=== PATIENT | male | born 1965 | race Caucasian/White ===

== ENCOUNTER 2016-05-20 12:51 | Outpatient (CLI) | payer MEDICAID ==
[~2016-05-20] VITALS: Ht 190.5 cm; Wt 111.4 kg
--- NOTE | ~2016-05-20 | HEMODYNAMI ---
PATIENT:ALICJA HERNANDEZ MEDICAL RECORD: [id number] : 69 [id number] ADMISSION DATE: 05/20/16 Generatedon:05/20/201618:30 Patient name: ALICJA HERNANDEZ Patient #: [id number] SSN: [id number] : 1965 Date of study: 05/20/2016 Page: Of Hemodynamic Procedure Report Patient Data Patient Demographics Procedure consent was obtained First Name: ALICJA Gender: Male Last Name: DAVID : 1965 Middle Initial: CARLY Age: 51 year(s) Patient #: [id number] Race: SSN: [id number] Additional ID: [id number] Contact details [address]: [address] [place] [address] State: [place] City: [place] Zip code: [address] Admission Admission Data Admission Date: 05/20/2016 Admission Time: 12:51 Arrival Date: 05/20/2016 Arrival Time: 12:51 Admit Source: Emergency Insurance Payor: Private department health insurance Room #: D.[id number] Height (in.): 74 BSA: 2.37 (m2) Height (cm.): 187.96 BMI: 31.46 (kg/m2) Weight (lbs.): 245 Weight (kg.): 111.13 Lab Results Lab Result Date: 05/20/2016 Lab Result Time: 0:00 Biochemistry Name Units Result Min Max BUN mg/dl 14 --(--*-)-- 7 18 Creatinine mg/dl 1.2 --(---*)-- 0.6 1.3 CBC Name Units Result Min Max Hemoglobin g/dl 15.7 --(--*-)-- 13.5 17.5 Procedure Procedure Types Cath Procedure Diagnostic Procedure LHC LH w/Coronaries PCI Procedure Coronary Stent Initial Procedure Description Procedure Date Procedure Date: 05/20/2016 Procedure Start Time: 18:13 Procedure End Time: 18:29 Procedure Staff Name Function Heber Hernandes MD Performing Physician Frida Gallardo RT Scrub Neeta Adan RN Nurse Shelia Serrato RT Monitor Leo Duenas RT Monitor Indication Angina Procedure Data Cath Procedure Fluoroscopy Diagnostic fluoroscopy Total fluoroscopy Time: 1.9 time: 1.9 min min Diagnostic fluoroscopy Total fluoroscopy dose: 358 dose: 358 mGy mGy Contrast Material Contrast Material Type Amount (ml) Isovue 300 62 Entry Location Entry Primary Successful Side Size Upsize Upsize Entry Closure Succes sful Closure Location (Fr) 1 (Fr) 2 (Fr) Remarks Device Remarks Femoral Right 5 Fr 6 Fr Vascade artery Short Closure System Diagnostic catheters Device Type Used For End Catheter Placement Cordis 5Fr Pigtail LV Angiography Catheter (MP) Cordis 5Fr JL 4.0 Left Coronary Catheter (MP) Angiography Cordis 5Fr 3DRC Catheter Right Coronary (MP) Angiography Procedure Medications Medication Administration Route Dosage Oxygen NC 2 l/min Heparin Flush Bag added to field 2 bags (1000units/500ml NS) Lidocaine 2% added to field 20 Fentanyl I.V. 100 mcg Versed I.V. 2 mg Fentanyl I.V. 100 mcg Versed I.V. 2 mg Heparin Bolus I.V. 4000 units Hemodynamics Rest BSA: 2.37 (m2) HGB: 15.7 (g/dl) O2 Consumption: Estimated: 276.67 (ml/min) O2 Co nsumption indexed: Estimated:116.74 (ml/min/m) Heart Rate: 62 (bpm) Pressure Samples Time Site Value (mmHg) Purpose Heart Use Rate(bpm) 18:16 LV 74/11,15 Snapshot 69 Snapshots Pre Cath Intra NCS Post Cath Vital Signs Time Heart Resp SPO2 NIBP (mmHg) Rhythm Pain Sedation Rate (ipm) (%) Status Level (bpm) 17:54:43 60 16 99 128/79(109) NSR 0 (11) 10(A) , No pain 17:58:55 63 16 98 139/73(94) NSR 0 (11) 10(A) , No pain 18:03:13 67 19 96 118/73(88) NSR 0 (11) 10(A) , No pain 18:07:25 63 18 92 116/74(89) NSR 0 (11) 10(A) , No pain 18:11:34 61 17 91 114/77(89) NSR 0 (11) 10(A) , No pain 18:15:46 59 18 96 129/76(125) NSR 0 (11) 9(A) , No pain 18:19:56 67 17 92 129/81(97) NSR 0 (11) 9(A) , No pain 18:24:10 68 18 94 135/82(97) NSR 0 (11) 9(A) , No pain 18:28:22 66 13 95 128/77(91) NSR 0 (11) 9(A) , No pain Medications Time Medication Route Dose Verified Delivered Reason Notes Effectiveness by by 17:57:07 Oxygen NC 2 Heber Neeta Per physician l/min Greta Adan RN 17:57:15 Heparin Flush added 2 Heber Heber used for Bag to bags Greta Hernandes MD procedure (1000units/500ml field NS) 17:57:22 Lidocaine 2% added 20ml Heber Heber used for to vial Greta Hernandes MD procedure field 18:14:06 Fentanyl I.V. 100 Heber Heber for sedation mcg Greta Hernandes MD 18:14:14 Versed I.V. 2 mg Heber Cardonarey for sedation Greta Hernandes MD 18:16:35 Fentanyl I.V. 100 Heberclare Cardonarey for sedation mcg Greta Hernandes MD 18:16:52 Versed I.V. 2 mg Heberclare Cardonarey for sedation Greta Hernandes MD 18:20:41 Heparin Bolus I.V. 4000 Heber Heber for units Greta Hernandes MD anticoagulation Procedure Log Time Note 17:35:29 Frida BRANDON(R) sent for patient. Start room use. 17:46:45 Informed consent obtained and on chart 17:46:52 Admit Source: Emergency department 17:46:57 Arrival Date: 05/20/2016 12:51:00 PM 17:47:04 Insurance Payor : Private health insurance 17:47:11 Diagnostic Cath Status : Elective 17:47:26 Indication : Angina 17:47:37 Time tracking: Regular hours 17:47:41 Plan of Care:Hemodynamics will remain stable., Cardiac rhythm will remain stable., Comfort level will be maintained., Respiratory function will remain adequate., Patient/ family verbilizes understanding of procedure., Procedure tolerated without complication., Recovers from procedure without complications.. 17:47:49 Patient received from Med II to CCL 1 Alert and oriented. Tansferred to table in Supine position. 17:47:50 Warm blankets applied, and nolvia hugger turned on for patient comfort. 17:47:50 Correct patient and procedure confirmed by team. 17:47:51 ECG and BP/O2 sat monitors applied to patient. 17:53:39 Vital chart was started 17:55:08 Baseline sample Acquired. 17:55:19 Rhythm: unchanged. 17:55:25 Full Disclosure recording started 17:55:35 H&P Date Dictated: 05/20/2016 ER History on chart., New H&P dictated by physician.. 17:55:36 Pre-procedure instructions explained to patient. 17:55:37 Pre-op teaching completed and patient verbalized understanding. 17:55:38 Family in waiting room. 17:55:39 Patient NPO since Midnight. 17:55:43 Is the patient allergic to Iodine/contrast media? No. 17:55:44 Was the patient premedicated? No 17:56:32 Is patient on blood thinner?Yes 17:56:36 ACC The patient was administered the following blood thiners within the last 24 hours: ACCPlavix 17:56:38 Patient diabetic? No. 17:56:41 Previous problem with sedation/anesthesia? No ? 17:56:42 Snore? Yes 17:56:43 Sleep apnea? Yes 17:56:44 Deviated septum? No 17:56:45 Opens mouth fully? Yes 17:56:46 Sticks out tongue? Yes 17:56:51 Airway obstruction? Yes asthma 17:56:57 Dentures? No ? 17:57:00 Pre procedure: right dorsailis pedis pulse 1+ Palpable, but thready & weak; easily obliterated 17:57:05 Patient pain scale 0/10 ?. 17:57:07 Oxygen 2 l/min NC was given by Neeta Adan RN; Per physician; 17:57:15 Heparin Flush Bag (1000units/500ml NS) 2 bags added to field was given by Heber Hernandes MD; used for procedure; 17:57:15 IV patent on arrival in left forearm with 0.9% NaCl at [facility]. 17:57:22 Lidocaine 2% 20ml vial added to field was given by Heber Hernandes MD; used for procedure; 17:57:33 Lab Result : BUN 14 mg/dl 17:57:33 Lab Result : Creatinine 1.2 mg/dl 17:57:33 Lab Result : Hemoglobin 15.7 g/dl 17:57:37 Lab results completed and on chart. 17:57:42 Right groin area was prepped with chlora-prep and draped in sterile fashion 17:57:43 Alarms reviewed by R. N. 17:57:43 Sharps counted by scrub and verified by R.N. 17:58:20 Patient Weight : 111.13 lbs 17:58:24 Patient Height : 187.96 inches 17:59:49 Use device set Femoral Dx 17:59:52 IV Extension Set opened to sterile field. 17:59:53 Tegaderm 4 x 4 opened to sterile field. 17:59:54 Cordis Infinity 5Fr Multipack catheter opened to sterile field. 17:59:59 St Mathew 260cm J .035 wire opened to sterile field. 18:00:00 Terumo 5Fr [place] Sheath opened to sterile field. 18:00:01 Cardinal Cath Pack opened to sterile field. 18:00:03 Bag Decanter opened to sterile field. 18:00:03 Acist Syringe opened to sterile field. 18:00:05 Acist Hand Control opened to sterile field. 18:00:06 Acist Manifold opened to sterile field. 18:06:13 Zero performed for pressure channel P1 18:12:37 Physician arrived 18:12:38 --------ALL STOP TIME OUT------ 18:12:39 Final Timeout: patient, procedure, and site verified with staff and physician. All members of the team are in agreement. 18:12:42 Right groin site verified by team. 18:12:45 Physical assessment completed. ASA score P 2 - A patient with mild systemic disease as per Heber Hernandes MD. 18:12:51 Sedation plan: IV Moderate Sedation Versed, Fentanyl 18:13:08 Procedure started. 18:13:18 Local anesthetic to right femoral artery with Lidocaine 2% by Heber Hernandes MD.INITIAL ACCESS ONLY 18:13:30 A 5 Fr sheath was inserted into the Right Femoral artery 18:14:06 Fentanyl 100 mcg I.V. was given by Heber Hernandes MD; for sedation; 18:14:14 Versed 2 mg I.V. was given by Heber Hernandes MD; for sedation; 18:16:35 Fentanyl 100 mcg I.V. was given by Heber Hernandes MD; for sedation; 18:16:38 A Cordis 5Fr Pigtail Catheter (MP) was advanced over the wire and used for LV Angiography. 18:16:52 Versed 2 mg I.V. was given by Heber Hernandes MD; for sedation; 18:17:00 Catheter removed. 18:17:07 A Cordis 5Fr JL 4.0 Catheter (MP) was advanced over the wire and used for Left Coronary Angiography. 18:17:35 LCA angiography performed. 18:17:57 Vaughn Whisper J 300cm 0.014 guide wire opened to sterile field. 18:17:58 Scope 5 BasixCompak Inflation Kit opened to sterile field. 18:17:59 Terumo 6Fr [place] Sheath opened to sterile field. 18:18:05 Sheath upsized to a 6 Fr Short. 18:18:14 Catheter removed. 18:18:20 A Cordis 5Fr 3DRC Catheter (MP) was advanced over the wire and used for Right Coronary Angiography. 18:18:24 RCA angiography performed. 18:19:14 Catheter removed. 18:19:53 Cordis 6FR XBLAD 3.5 guide catheter opened to sterile field. 18:20:08 6 Fr xblad 3.5 guide catheter was inserted over the wire 18:20:12 whisper wire advanced. 18:20:41 Heparin Bolus 4000 units I.V. was given by Heber Hernandes MD; for anticoagulation; 18:22:08 Inflation Number: 1 A Medtronic Integrity 3.5 X 18 stent was prepped and advanced across the Mid LAD. The stent was deployed at 13 BUSTER for 0:04 (min:sec). 18:22:26 Tegaderm 4 x 4 opened to sterile field. 18:22:52 Vascade 6/7 Fr Closure Device opened to sterile field. 18:23:06 Sheath removed intact; hemostasis achieved with Vascade Closure System to the Right Femoral artery. 18:23:08 Procedure ended.(Physican Out) 18:23:19 Fluoroscopy time 01.90 minutes. 18:23:26 Fluoroscopy dose: 358 mGy 18:23:26 Flurop Dose total: 358 18:23:34 Contrast amount:Isovue 300 62ml. 18:23:36 Sharps counted by scrub and verified by R.N. 18:23:38 Insertion/operative site no bleeding no hematoma. 18:23:41 Post-op/insertion site Right Femoral artery dressed using a 4 x 4 and Tegaderm. 18:23:44 Post right femoral artery:stable 18:23:47 Post Procedure Pulses reassessed and unchanged 18:23:50 Post-procedure physical assessment completed. ASA score P 2 - A patient with mild systemic disease as per Heber Hernandes MD. 18:23:51 Post procedure instruction explained to patient.Patient verbalizes understanding. 18:23:54 Procedure and supply charges have been captured, reviewed, submitted and are correct. 18:24:18 Procedure type changed to Cath procedure, Diagnostic procedure, LHC, LHC w/Coronaries, PCI procedure, Coronary Stent Initial 18:28:31 Post procedure rhythm: sinus rhythm 18::34 Patient needs reinforcement of post procedure teaching. 18:28:37 Vital chart was stopped 18:28:39 See physician's report for complete and final results. 18::41 Report given to PCU. 18:28:50 Patient transfered to PCU with Bed. 18:29:13 Procedure ended. 18:29:13 Full Disclosure recording stopped 18:29:29 ACC-PCI Only Patient was given prescriptions, or instructed by Heber Hernandes MD to start/continue the following medications upon discharge: Aspirin, Plavix 18:29:31 End room use (Document Last) Intervention Summary Intervention Notes Time ActionType Lesion and Equipment Action# Pressure Duration Attributes Used 18:22:08 Place stent Mid LAD Medtronic 1 13 00:04 Integrity 3.5 X 18 stent Device Usage Item Name Manufacture Quantity Catalog Hospital Part Current Minima l Lot# / Number Charge Number Stock Stock Serial# Code IV [facility] 1 06120-44 359832 68172 064732 5 Extension Set Tegaderm 4 3M 2 1626W 457061 064597 102923 5 x 4 Cordis Cardinal 1 [id number] 108853 68735 626484 30 [facility] 5Fr Multipack catheter [facility] Mathew 1 854475 400518 387983 339570 30 260cm J .035 wire Terumo 5Fr Terumo 1 [id number] 676591 898287 438400 40 [place] Sheath Cardinal Cardinal [address] 288440 44061 811650 5 Cath Pack Health Bag Microtek 1 2002S 728938 02471 458964 5 Decanter Medical Inc. Acist Acist 1 65545 434074 674984 162701 20 Syringe Medical Systems Inc Acist Hand Acist 1 83416 853612 777906 802202 5 Control Medical Systems Inc Acist Acist 1 30675 060799 130130 645200 5 Manifold Medical Systems Inc Cordis 5Fr Cardinal 1 921047 5 Pigtail Health Catheter (MP) Cordis 5Fr Cardinal 1 872293 5 JL 4.0 Health Catheter (MP) Vaughn Vaughn 1 [id number] 583625 411785 610994 5 Whisper J Vascular 300cm 0.014 guide wire [facility] 1 [id number] 908910 624148 274710 15 BasixDial a Dealer Medical Inflation Kit Terumo 6Fr Terumo 1 [id number] 558375 988824 062516 40 [place] Sheath Cordis 5Fr Cardinal 1 997659 5 3DRC Health Catheter (MP) Cordis 6FR Cardinal 1 [id number] 769727 777683 268262 10 XBLAD 3.5 Health guide catheter Medtronic Medtronic 1 [id number] 755795 239310 2 [id number] Integrity 3.5 X 18 stent Vascade 6/7 Cardiva 1 [id number] 146455 674593 474361 5 Fr Closure Medical, Device Inc. Signature Audit [place] Stage Time Signature Unsigned Intra-Procedure 05/20/2016 Leo Duenas 6:30:20 PM RT(R) (CV) Signatures Monitor : Shelia Serrato RT Signature : Date : Time : Monitor : Leo Duenas RT Signature : Date : Time : [place] [address] [place] [address]
[2016-05-20 10:25] LABS: BASOPHILS 0.9 % (0.0-2.0); HEMOGLOBIN 15.7 g/dL (13.5-17.5); MCH 29.2 pg (26.0-34.0); MCHC 34.1 g/dL (31.0-37.0); MCV 85.7 fL (80.0-100.0); MEAN PLATELET VOLUME 10.5 fL (7.4-10.4); MONOCYTES 10.2 % (2-11); NEUTROPHILS 54.9 % (40-80); PLATELET COUNT 181 10x3/uL (130-400); RBC 5.37 10x6/uL (4.20-6.10); RDW 13.3 % (11.5-14.5); WBC 4.3 10x3/uL (4.8-10.8)
[2016-05-20 10:39] LABS: ALKALINE PHOSPHATASE 61 U/L (46-116); ALT (SGPT) 29 U/L (10-68); CALC OSMOLALITY 276 mosm/kg (275-300); CALCIUM 8.5 mg/dL (8.5-10.1); CARBON DIOXIDE 30.3 mmol/L (21.0-32.0); CHLORIDE - SERUM 102 mmol/L (98-107); CREATININE - SERUM 1.2 mg/dL (0.6-1.3); GLUCOSE 97 mg/dL (74-106); POTASSIUM - SERUM 4.1 mmol/L (3.5-5.1); PROTEIN - SERUM 7.2 g/dL (6.4-8.2); SODIUM 138 mmol/L (136-145); UREA NITROGEN 14 mg/dL (7-18); eGFR NON AFRICAN AMERICAN 68 mL/min (90-120)
[2016-05-20 10:58] LABS: CKMB 1.2 U/L (0.0-3.6); CREATINE KINASE 181 UL (21-232); TROPONIN-I < 0.017 ng/mL (0.000-0.060)
--- NOTE | 2016-05-20 14:35 | NUR ---
RECEIVED PT VIA W/C FROM ER IN STABLE CONDITION DENIES ANY PAIN OR DISCOMFORT AT THIS TIME NAD NOTED
[2016-05-20 14:55] VITALS: BP 128/67; Ht 190.5 cm; Wt 111.4 kg
[2016-05-20] MEDS ORDERED: ULTRAM50 MG PO (16:36)
[2016-05-20] MEDS ORDERED: PROAIR HFA8.5 GM INH (16:37)
[2016-05-20] MEDS ORDERED: CELEXA10 MG PO (16:37)
[2016-05-20] MEDS ORDERED: OMEPRAZOLE40 MG PO (16:37)
[2016-05-20] MEDS ORDERED: ROBAXIN500 MG PO (16:38)
[2016-05-20 18:44] VITALS: BP 119/65
[2016-05-20 18:59] VITALS: BP 121/63
[2016-05-20 19:00] VITALS: BP 134/91
[2016-05-20 19:14] VITALS: BP 113/67
--- NOTE | 2016-05-20 19:35 | NUR ---
ASSESSMENT COMPLETE, A&O. PT RESITNG SUPINE, RESPERATIONS EVEN ON ROOM AIR. IV TO RIGHT FOREARM SL, SITE CLEAN AND DRY. DRSG TO RIGHT GROIN C/D/I. NO SWELLING, BLEEDING OR HEMATOMA NOTED. SITE SOFT TO THE TOUCH. PT DENIES PAIN. RIGHT LEG WARM, PEDAL PULSES PALPABLE. AT BED SIDE, BED LOW, CL IN REACH.
--- NOTE | 2016-05-20 20:18 | NUR ---
SANDWHICH TRAY AND LEMON [place] GIVEN AT PT REQUEST. NO OTHER NEEDS VOICED AT THIS TIME.
[2016-05-21] VITALS: BP 151/84
--- NOTE | 2016-05-21 01:20 | NUR ---
SLEEPING, RESTIRATIONS UNLABORED, NO S&S OF ACUTE DISTRESS NOTED. TELEMETRY SHOWING 59 BPM IN NSR. BED LOW AND LOCKED, CALL LIGHT IN REACH. WILL CONTINUE TO MONITOR.
--- NOTE | 2016-05-21 03:05 | NUR ---
RESTING WITH EYES CLOSED, RESPERATIONS EVEN, NO S/S DISTRESS NOTED.
[2016-05-21 04:00] VITALS: BP 143/93
--- NOTE | 2016-05-21 07:19 | NUR ---
0710-DENIES NEEDS AT PARESENT TIME. HAD HEART CATH YESTERDAY. RIGHT GROIN DRESSING IS DRY AND INTACT, SITE IS SOFT. PPP AND STRONG. ON HEART MONITOR SHOWING SR, HR 60. ON ROOM AIR. SALINE LOCK SEEN TO RIGHT FOREARM, FLUSHES WELL. PATIENT COMPLAINS OF RIGHT HIP PAIN "AT TIMES, NOT ALAWAYS". ASK THAT HE TELL THE DOCTOR OF THIS BEFORE DISCHARGE. STATES HE HAS A HISTORY OF RIGHT UPPER ARM BLOOD CLOT IN THE PAST. WILL CONTINUE TO MONITOR.
[2016-05-21] MEDS ORDERED: PLAVIX75 MG PO (08:16)
[2016-05-21] MEDS ORDERED: PRAVACHOL20 MG PO (08:17)
[2016-05-21] MEDS ORDERED: ASPIRIN81 MG PO (08:18)
[2016-05-21 08:56] VITALS: BP 148/109
--- NOTE | 2016-05-21 10:56 | NUR ---
VERBAL AND WRITTEN DISCHARGE INSTRUCITONS GIVEN TO PATIENT AND . WANTED B/P CHECKED, 125/86 TO LEFT ARM. SALINE LOCK REMOVED WITH CATH TIP INTACT. DISCHARGED HOME VIA WHEELCHAIR.
--- NOTE | 2016-05-27 14:16 | DS ---
PATIENT:ALICJA HERNANDEZ :69 MEDICAL RECORD: [id number] DISCHARGE SUMMARY ADMISSION DATE: 05/20/16 DISCHARGE DATE: 05/21/16 DISCHARGE DIAGNOSES: 1. Unstable angina. 2. Coronary artery disease. 3. Percutaneous transluminal coronary angioplasty and stent left anterior descending this admission. HOSPITAL COURSE: This is a gentleman who presents with anginal symptomatology, found to have single vessel disease to the LAD, underwent successful PTCA stent of the LAD. He had an uneventful postop course with no further angina. Discharged home with the addition of aspirin and Plavix to his medical regimen. We will follow up with [facility] in 1 month. TRANSINT:[id number] Voice Confirmation ID: [id number] DOCUMENT ID: [id number] DHARMESH DAMICO MD at 1416 CC: [id number] DICTATION DATE: 05/20/16 182 AUTOMATIC FANCY MACHINE OPERATOR: 05/21/16 0002 DEP CLI 05/21/16 [place] [id number] [place] [address]
--- NOTE | 2016-05-27 14:16 | HP ---
PATIENT: ALICJA HERNANDEZ MEDICAL RECORD: [id number] ACCOUNT: [id number] LOCATION:[facility] : 69 ADMISSION DATE: 05/20/16 HISTORY AND PHYSICAL EXAMINATION ADMISSION DIAGNOSES: 1. Angina, unstable. 2. Family history of coronary artery disease. 3. Smoking history. HISTORY OF PRESENT ILLNESS: Mr. Hernandez presents with 1 week of increasing chest pain and chest discomfort compatible with angina, dull aching pressure sensation across the anterior chest, has been worse with exertion, less and less exertion has brought on the chest pain over this week. He had a severe episode of diaphoresis with the chest pain today. His EKG is normal. Troponin is normal, but his symptoms continued to progress. PHYSICAL EXAMINATION: GENERAL APPEARANCE: Well-nourished, well-developed, appears stated age. Level of distress, comfortable. PSYCHIATRIC: Mental status, alert, normal affect. Orientation, oriented to time, place and person. EYES: Lids and conjunctiva, noninjected. No discharge, no pallor. ENT: Lips, teeth, gums, normal dentition. Oropharynx, no cyanosis, no pallor. NECK: Carotid arteries, bilateral normal upstroke, no bruits, no thrills. JUGULAR VEINS: No jugular venous pressure or distention. CERVICAL LYMPH NODES: Nontender, nonenlarged. THYROID: Not enlarged. Nontender. No nodules. LUNGS: Respiratory effort, unlabored. CHEST: Normal curvature. No thoracic deformity. No chest wall tenderness. Percussion, resonant. Auscultation, clear. No wheezes, no rales, no rhonchi. CARDIOVASCULAR: Precordial exam, nondisplaced. No heaves or pericardial thrills. Rate and rhythm, regular. Heart sounds, normal S1, normal S2. No S3, no gallop, no rub. Systolic murmur, not heard. Diastolic murmur, not heard. EXTREMITIES: No cyanosis, no edema. Peripheral pulses, full and equal in all extremities, except as noted. No bruits appreciated. ABDOMEN: Soft, nondistended. Normal aorta. No bruit. Nontender. No masses. Liver, nontender, no hepatomegaly. Spleen, nontender, no splenomegaly. MUSCULOSKELETAL: No joint tenderness. No joint swelling. No erythema. NEUROLOGICAL: Normal gait, normal strength, normal tone. SKIN: Warm and dry. REVIEW OF SYSTEMS: The patient reports easy bruising but reports no swollen glands. The patient reports no fever, no night sweats, no significant weight gain, no significant weight loss. No significant exercise tolerance. The patient reports no dry eyes, no irritation, no vision change. Patient reports no difficulty hearing and no ear pain. Patient reports no frequent nose bleeds or nose and sinus problems. Patient reports on arm pain on exertion. No shortness of breath while lying down. No history of heart murmur. Patient reports no cough, no wheezing or coughing up blood. Patient reports no abdominal pain, no vomiting. Normal appetite. No diarrhea and not vomiting blood. No nausea and no constipation. Patient reports no incontinence. No difficulty urinating. No hematuria. No increased frequency. Patient reports no muscle aches. No weakness, no arthralgias, no back pain. No swelling of the extremities. Patient reports no abnormal mole, no jaundice, no rashes. Reports HISTORY AND PHYSICAL [id number] ALICJA HERNANDEZ no loss of consciousness. No weakness and no numbness. No seizures, dizziness, or headaches. The patient reports no depression, no sleep disturbance, feeling safe in a relationship and no alcohol abuse. Patient reports on fatigue. Reports no runny nose or sinus pressure. No itching, no hives, and no frequent sneezing. OVERALL IMPRESSION: Unstable angina in a progressive fashion. We will proceed with coronary angiography. Further care depends upon findings of the angiography. TRANSINT:[id number] Voice Confirmation ID: [id number] DOCUMENT ID: [id number] DHARMESH DAMICO MD at 1416 CC: [id number] DICTATION DATE: 05/20/16 1256 AIRFRAME TECHNICAL OFFICER: 05/20/16 1307 DEP CLI 05/21/16 [place] [id number]
--- NOTE | 2016-05-27 14:16 | OP ---
PATIENT NAME: ALICJA HERNANDEZ MEDICAL RECORD: [id number] :69 LOCATION:[facility] ADMISSION DATE: SURGEON: DHARMESH DAMICO MD DATE OF OPERATION: 05/20/2016 PROCEDURES: 1. PTCA stent LAD. 2. Left heart catheterization. 3. Selective coronary angiography. 4. Left ventriculogram. INDICATION: Unstable angina. PROCEDURE IN DETAIL: After detailed explanation of risks, benefits as well as alternative therapies, the patient elected to proceed with angiogram and angioplasty. The right femoral area was prepped and draped in normal sterile fashion. The right femoral artery was cannulated via modified Seldinger technique with placement of a 6-Lithuanian sheath. All catheters exchanged through this sheath. FINDINGS: The left ventriculogram was performed in the standard 30-degree LINCOLN view reveals good cardiac wall motion throughout all segments. Overall ejection fraction estimated 60%. SELECTIVE CORONARY ANGIOGRAPHY: 1. Left main is with no significant angiographic disease. 2. Left anterior descending has 80% to 90% stenosis in the midvessel, appears to be an ulcerated unstable plaque. 3. Left circumflex shows moderate irregularities, but no flow-limiting stenosis. 4. Right coronary has moderate irregularities, but no flow-limiting stenosis. PTCA STENT OF THE LAD: The stent used is a 3.5 x 18 mm Integrity. Result was 0% residual stenosis. OVERALL IMPRESSION: Successful percutaneous transluminal coronary angioplasty stent of the left anterior descending going from 80% to 90% initial stenosis to 0% residual. TRANSINT:[id number] Voice Confirmation ID: [id number] DOCUMENT ID: [id number] DHARMESH DAMICO MD at 1416 CC: [id number] DICTATION DATE: 05/20/16 1828 DIVERSIFIED CROPS I FARMWORKER: 05/20/16 2013 [facility] CLI 05/21/16 [place] [id number]
== END 2016-05-21 10:58 | disposition home or self-care (01) ==
LOC: OBSVTIME → D.OPS 12:51 → D.ER 12:51 → D.M2 12:51 → D.OPS 05-21 10:58
PROVIDERS: Emergency Medicine
DX: I25.110 Atherosclerotic heart disease of native coronary artery with unstable angina pectoris (principal)

== ENCOUNTER 2016-06-23 11:26 | Emergency (ER) | payer MEDICAID ==
[2016-05-20 14:55] VITALS: BMI 30.6
[~2016-06-23 11:26] MED LIST: ASPIRIN81 MG PO; CELEXA10 MG PO; OMEPRAZOLE40 MG PO; PLAVIX75 MG PO; PRAVACHOL20 MG PO; PROAIR HFA8.5 GM INH; ROBAXIN500 MG PO; ULTRAM50 MG PO
[2016-06-23 12:39] LABS: BASOPHILS 1.2 % (0.0-2.0); EOSINOPHILS 5.3 % (0-7); IMMATURE GRANULOCYTES 0.2 % (0-5); LYMPHOCYTES 28.8 % (15-50); MCH 28.9 pg (26.0-34.0); MCHC 34.1 g/dL (31.0-37.0); MCV 84.8 fL (80.0-100.0); MEAN PLATELET VOLUME 10.6 fL (7.4-10.4); NEUTROPHILS 53.5 % (40-80); PLATELET COUNT 185 10x3/uL (130-400); RBC 5.19 10x6/uL (4.20-6.10); RDW 13.1 % (11.5-14.5); WBC 4.9 10x3/uL (4.8-10.8)
[2016-06-23 13:00] LABS: ALBUMIN 3.8 g/dL (3.4-5.0); ALKALINE PHOSPHATASE 68 U/L (46-116); ALT (SGPT) 31 U/L (10-68); BILIRUBIN - TOTAL 0.39 mg/dL (0.2-1.3); CALC OSMOLALITY 279 mosm/kg (275-300); CALCIUM 8.7 mg/dL (8.5-10.1); CARBON DIOXIDE 28.8 mmol/L (21.0-32.0); CHLORIDE - SERUM 103 mmol/L (98-107); CREATININE - SERUM 1.2 mg/dL (0.6-1.3); GLUCOSE 107 mg/dL (74-106); POTASSIUM - SERUM 3.8 mmol/L (3.5-5.1); PROTEIN - SERUM 7.1 g/dL (6.4-8.2); SODIUM 139 mmol/L (136-145); UREA NITROGEN 18 mg/dL (7-18); eGFR NON AFRICAN AMERICAN 68 mL/min (90-120)
[2016-06-23 13:10] LABS: CKMB 1.8 U/L (0.0-3.6); CREATINE KINASE 236 UL (21-232)
[2016-06-23 13:11] LABS: TROPONIN-I < 0.017 ng/mL (0.000-0.060)
== END 2016-06-23 16:46 | disposition home or self-care (01) ==
LOC: D.ER 11:26
PROVIDERS: Emergency Medicine
DX: R07.89 Other chest pain (principal)

== ENCOUNTER → 2017-05-05 10:54 | Outpatient (CLI) | payer MEDICAID ==
[2016-05-20 14:55] VITALS: BMI 30.6
[~2017-05-05 10:54] MED LIST changes: +IBUPROFEN800 MG PO
== END | disposition home or self-care (01) ==
LOC: D.US 10:54
DX: I70.219 Atherosclerosis of native arteries of extremities with intermittent claudication, unspecified extremity (principal)

== ENCOUNTER 2017-05-13 19:28 | Emergency (ER) | payer MEDICAID ==
[2016-05-20 14:55] VITALS: BMI 30.6
[~2017-05-13 19:28] MED LIST changes: -IBUPROFEN800 MG PO
[2017-05-13 19:59] LABS: BASOPHILS 0.4 % (0-2); EOSINOPHILS 5.4 % (0-7); HEMATOCRIT 43.9 % (42.0-54.0); HEMOGLOBIN 14.7 g/dL (13.5-17.5); MCH 29.2 pg (26.0-34.0); MCHC 33.5 g/dL (31.0-37.0); MCV 87.1 fL (80.0-100.0); MEAN PLATELET VOLUME 10.8 fL (7.4-10.4); MONOCYTES 9.2 % (2-11); PLATELET COUNT 206 10x3/uL (130-400); RBC 5.04 10x6/uL (4.20-6.10); RDW 13.2 % (11.5-14.5); WBC 6.9 10x3/uL (4.8-10.8)
[2017-05-13 20:07] LABS: INR 0.92 (0.85-1.17)
[2017-05-13 20:09] LABS: D-DIMER-QUANTITATIVE 0.28 ug/mLFEU (0.20-0.54)
[2017-05-13 20:14] LABS: ALBUMIN 3.6 g/dL (3.4-5.0); ALKALINE PHOSPHATASE 89 U/L (46-116); ALT (SGPT) 16 U/L (10-68); BILIRUBIN - TOTAL 0.13 mg/dL (0.2-1.3); CALC OSMOLALITY 279 mosm/kg (275-300); CALCIUM 8.5 mg/dL (8.5-10.1); CARBON DIOXIDE 28.8 mmol/L (21.0-32.0); CHLORIDE - SERUM 104 mmol/L (98-107); CREATININE - SERUM 1.1 mg/dL (0.6-1.3); GLUCOSE 121 mg/dL (74-106); POTASSIUM - SERUM 3.9 mmol/L (3.5-5.1); PROTEIN - SERUM 7.2 g/dL (6.4-8.2); SODIUM 139 mmol/L (136-145); UREA NITROGEN 16 mg/dL (7-18); eGFR NON AFRICAN AMERICAN 75 mL/min (90-120)
[2017-05-13 20:29] LABS: CHOL - HDL RATIO 3.3 ratio (2.3-4.9); CHOLESTEROL, TOTAL 135 mg/dL (0-200); CKMB 0.5 U/L (0.0-3.6); CREATINE KINASE 114 UL (21-232); HDL CHOLESTEROL 41 mg/dL (32-96); LDL CHOLESTEROL 58 mg/dL (0-100); LDL-HDL RATIO 1.4 ratio (1.5-3.5); MAGNESIUM - SERUM 2.2 mg/dL (1.8-2.4); TRIGLYCERIDE 180 mg/dL (30-200)
[2017-05-13 20:31] LABS: TROPONIN-I < 0.017 ng/mL (0.000-0.060)
== END 2017-05-14 00:36 | disposition home or self-care (01) ==
LOC: D.ER 19:28
PROVIDERS: Family Medicine
DX: R07.89 Other chest pain (principal)

== ENCOUNTER 2017-05-16 09:01 | Outpatient (CLI) | payer MEDICAID ==
[~2017-05-16] VITALS: Ht 190.5 cm; Wt 110.0 kg
--- NOTE | ~2017-05-16 | OP ---
PATIENT NAME: ALICJA HERNANDEZ MEDICAL RECORD: [id number] :69 LOCATION:[facility] ADMISSION DATE: SURGEON: DHARMESH DAMICO MD DATE OF OPERATION: 05/16/2017 PROCEDURES: 1. Left heart catheterization. 2. Selective coronary angiography. 3. Left ventriculogram. INDICATION: Chest pain compatible with angina, coronary artery disease, previous PTCA stent. PROCEDURE IN DETAIL: After informed consent was obtained and after detailed explanation of risks, benefits as well as alternative therapies, the patient elected to proceed with angiogram and heart catheterization. The right femoral area was prepped and draped in normal sterile fashion. The right femoral artery was cannulated via modified Seldinger technique with placement of 6-[place]banian sheath. All catheters exchanged through this sheath. FINDINGS: The left ventriculogram was performed in standard 30-degree LINCOLN view, reveals good cardiac wall motion throughout all segments. Overall ejection fraction estimated at 55% to 60%. SELECTIVE CORONARY ANGIOGRAPHY: 1. Left main showed no significant angiographic disease. 2. Left anterior descending has previously placed stent. This is widely patent with no significant restenosis. No disease elsewise at the LAD or its branches. 3. Left circumflex is large, dominant with no significant disease. 4. Right coronary artery is small, nondominant with no significant disease. OVERALL IMPRESSION: Wide patency of the previously placed stent in the LAD. No disease elsewise. Continue medical management of the coronary artery disease and cardiac risk factors. TRANSINT:[id number] Voice Confirmation ID: [id number] DOCUMENT ID: [id number] DHARMESH DAMICO MD at 1025 CC: [id number] DICTATION DATE: 05/16/17 1127 INTERLOCKING PAVEMENT INSTALLER: 05/16/17 1321 DEP CLI 05/16/17 [place] [id number]
--- NOTE | ~2017-05-16 | HEMODYNAMI ---
PATIENT:ALICJA HERNANDEZ MEDICAL RECORD: [id number] : 69 LOCATION:[facility] ADMISSION DATE: 05/16/17 Generatedon:05/16/201711:27 Patient name: ALICJA HERNANDEZ Patient #: [id number] SSN: [id number] : 1965 Date of study: 05/16/2017 Page: Of Hemodynamic Procedure Report Patient Data Patient Demographics Procedure consent was obtained First Name: ALICJA Gender: Male Last Name: DAVID : 1965 [facility] Initial: CARLY Age: 52 year(s) Patient #: [id number] Race: SSN: [id number] Additional ID: [id number] Contact details Address: [address] [place] [address] State: [place] City: [place] Zip code: [address] Past Medical History Allergies Allergen Reaction Date Comments Reported Other allergy 05/16/2017 MORPHINE Admission Admission Data Admission Date: 05/16/2017 Admission Time: 9:01 Height (in.): 6.2 BSA: 0.39 (m2) Height (cm.): 15.75 BMI: 4426.19 (kg/m2) Weight (lbs.): 242 Weight (kg.): 109.77 Lab Results Lab Result Date: 05/16/2017 Lab Result Time: 0:00 Biochemistry Name Units Result Min Max BUN mg/dl 14 --(--*-)-- 7 18 Creatinine mg/dl 1.2 --(---*)-- 0.6 1.3 Procedure Procedure Types Cath Procedure Diagnostic Procedure LHC LHC w/Coronaries Miscellaneous Procedures Moderate Sedation up to 15 minutes Procedure Description Procedure Date Procedure Date: 05/16/2017 Procedure Start Time: 11:18 Procedure End Time: 11:24 Procedure Staff Name Function Heber Hernandes MD Performing Physician Shelia Serrato RT Monitor Heike Buchanan RT Scrub Mile Montes RN Nurse Procedure Data Cath Procedure Fluoroscopy Diagnostic fluoroscopy Total fluoroscopy Time: 0.9 time: 0.9 min min Diagnostic fluoroscopy Total fluoroscopy dose: 350 dose: 350 mGy mGy Contrast Material Contrast Material Type Amount (ml) Isovue 300 53 Entry Location Entry Primary Successful Side Size Upsize Upsize Entry Closure Succes sful Closure Location (Fr) 1 (Fr) 2 (Fr) Remarks Device Remarks Femoral Right 5 Fr Exoseal artery Estimated blood loss: 5 ml Diagnostic catheters Device Type Used For End Catheter Placement MULTIPACK Pigtail 5 Fr LV Angiography catheter MULTIPACK JL 4.0 5Fr Left Coronary catheter Angiography MULTIPACK 3DRC 5Fr Right Coronary catheter Angiography Procedure Complications No complications Procedure Medications Medication Administration Route Dosage 0.9% NaCl I.V. 100 ml/hr Oxygen NC 2 l/min Lidocaine 2% added to field 20 Heparin Flush Bag added to field 2 bags (1000units/500ml NS) Versed I.V. 1 mg Fentanyl I.V. 50 mcg Versed I.V. 1 mg Fentanyl I.V. 50 mcg Fentanyl I.V. 50 mcg Versed I.V. 2 mg Hemodynamics Rest BSA: 0.39 (m2) O2 Consumption: Estimated: 46.82 (ml/min) O2 Consumption indexed: Estimated:120.05 (ml/min/m) Heart Rate: 71 (bpm) Pressure Samples Time Site Value (mmHg) Purpose Heart Use Rate(bpm) 11:19 LV 106/97,58 Snapshot 80 Snapshots Pre Cath Intra NCS Post Cath Vital Signs Time Heart Resp SPO2 etCO2 NIBP (mmHg) Rhythm Pain Sedation Rate (ipm) (%) (mmHg) Status Level (bpm) 10:36:45 72 18 99 0 138/81(107) NSR 0 (11) 10(A) , No pain 10:41:40 70 14 99 31.6 119/89(112) NSR 0 (11) 10(A) , No pain 10:45:46 70 20 98 27.8 126/89(101) NSR 0 (11) 10(A) , No pain 10:50:00 69 16 96 15.8 124/73(92) NSR 0 (11) 10(A) , No pain 10:54:12 71 19 98 35.3 121/73(89) NSR 0 (11) 10(A) , No pain 10:58:24 64 14 98 15 112/72(96) NSR 0 (11) 10(A) , No pain 11:02:31 69 19 95 9 111/76(84) NSR 0 (11) 10(A) , No pain 11:06:39 75 19 95 30 118/74(90) NSR 0 (11) 10(A) , No pain 11:10:47 80 18 95 21 121/78(89) NSR 0 (11) 10(A) , No pain 11:14:59 66 17 95 18 118/70(94) NSR 0 (11) 10(A) , No pain 11:19:09 77 16 98 38.3 113/79(99) NSR 0 (11) 9(A) , No pain 11:23:15 73 18 98 18.8 117/80(93) NSR 0 (11) 10(A) , No pain Medications Time Medication Route Dose Verified Delivered Reason Notes Effe ctiveness by by 10:38:20 0.9% NaCl I.V. 100 Heber Mile used for ml/hr Greta Montes RN procedure 10:38:28 Oxygen NC 2 Heberclare Fritzy Per l/min Greta Montes RN physician 10:38:37 Lidocaine 2% added 20ml Heber Heber for local to vial Greta Hernandes MD anesthetic field 10:38:47 Heparin Flush added 2 Heber Heber used for Bag to bags Greta Hernandes MD procedure (1000units/500ml field NS) 11:14:55 Versed I.V. 1 mg Heber Treadwell for Greta Montes RN sedation 11:15:06 Fentanyl I.V. 50 Heber Treadwell for shawn Montes RN sedation 11:16:53 Versed I.V. 1 mg Heber Fritzy for Greta Montes RN sedation 11:17:04 Fentanyl I.V. 50 Heber Fritzy for shawn Montes RN sedation 11:19:31 Fentanyl I.V. 50 Heber Fritzy for shawn Montes RN sedation 11:19:41 Versed I.V. 2 mg Heber Fritzy for Greta Montes RN sedation Procedure Log Time Note 10:23:11 Patient Height : 6.2 inches 10:23:25 Patient Weight : 242 lbs 10:23:41 Shelia Serrato RT(R) sent for patient. Start room use. 10:23:42 Time tracking: Regular hours 10:23:46 Plan of Care:Hemodynamics will remain stable., Cardiac rhythm will remain stable., Comfort level will be maintained., Respiratory function will remain adequate., Patient/ family verbilizes understanding of procedure., Procedure tolerated without complication., Recovers from procedure without complications.. 10:23:48 Signed procedure consent form obtained from patient. 10::21 H&P Date Dictated: 05/14/2017 Within 30 days and on chart., H&P Addendum completed by physician on day of procedure. (MUST COMPLETE FOR ALL OUTPATIENTS). 10:24:37 Patient allergic to Other allergyMORPHINE 10::25 Lab Result : Creatinine 1.2 mg/dl 10::25 Lab Result : BUN 14 mg/dl 10:28:19 Is patient on blood thinner?Yes 10::21 ACC The patient was administered the following blood thiners within the last 24 hours: ACCPlavix 10:30:36 Patient received from Pre/Post Procedure Room to [facility] 2 Alert and oriented. Tansferred to table in Supine position. 10:30:37 Warm blankets applied, and nolvia hugger turned on for patient comfort. 10:30:37 Correct patient and procedure confirmed by team. 10:30:38 ECG and BP/O2 sat monitors applied to patient. 10:35:30 Vital chart was started 10:38:20 0.9% NaCl 100 ml/hr I.V. was administered by Mile Montes RN; used for procedure; 10:38:28 Oxygen 2 l/min NC was administered by Mile Montes RN; Per physician; 10:38:37 Lidocaine 2% 20ml vial added to field was administered by Heber Hernandes MD; for local anesthetic; 10:38:47 Heparin Flush Bag (1000units/500ml NS) 2 bags added to field was administered by Heber Hernandes MD; used for procedure; 10:41:23 Baseline sample Acquired. 10:41:28 Rhythm: sinus rhythm 10:41:30 Full Disclosure recording started 10:41:31 Pre-procedure instructions explained to patient. 10:41:32 Pre-op teaching completed and patient verbalized understanding. 10:41:33 Family in patients room. 10:41:35 Patient NPO since Midnight. 10:41:37 Is the patient allergic to Iodine/contrast media? No. 10:41:38 Was the patient premedicated? No 10:42:00 Is patient on blood thinner?Yes 10:42:03 ACC The patient was administered the following blood thiners within the last 24 hours: ACCPlavix 10:42:06 Patient diabetic? No. 10:42:09 Previous problem with sedation/anesthesia? No ? 10:42:10 Snore? Yes 10:42:11 Sleep apnea? Yes 10:42:12 Deviated septum? No 10:42:12 Opens mouth fully? Yes 10:42:13 Sticks out tongue? Yes 10:42:19 Airway obstruction? Yes Asthma 10:42:22 Dentures? No ? 10:42:26 Pre procedure: right dorsailis pedis pulse 2+ Normal; easily identifiable; not easily obliterated 10:42:28 Pre procedure: left dorsailis pedis pulse 2+ Normal; easily identifiable; not easily obliterated 10:42:31 Patient pain scale 0/10 ?. 10:42:37 IV patent on arrival in left forearm with 0.9% NaCl at [facility]. 10:42:40 Lab results completed and on chart. 10:42:44 Right groin area was prepped with chlora-prep and draped in sterile fashion 10:42:45 Alarms reviewed by R. N. 10:42:45 Sharps counted by scrub and verified by R.N. 11:14:23 Physician arrived 11:14:23 --------ALL STOP TIME OUT------ 11:14:24 Final Timeout: patient, procedure, and site verified with staff and physician. All members of the team are in agreement. 11:14:27 Right groin site verified by team. 11:14:31 Physical assessment completed. ASA score P 2 - A patient with mild systemic disease as per Heber Hernandes MD. 11:14:36 Sedation plan: IV Moderate Sedation Medication:Versed, Fentanyl 11:14:55 Versed 1 mg I.V. was administered by Mile Montes RN; for sedation; 11:15:06 Fentanyl 50 mcg I.V. was administered by Mile Montes RN; for sedation; 11:16:53 Versed 1 mg I.V. was administered by Mile Montes RN; for sedation; 11:17:04 Fentanyl 50 mcg I.V. was administered by Mile Montes RN; for sedation; 11:18:18 Procedure started. 11:18:21 Local anesthetic to right femoral artery with Lidocaine 2% by Heber Hernandes MD.INITIAL ACCESS ONLY 11:18:30 A 5 Fr sheath was inserted into the Right Femoral artery 11:19:01 Use device set Femoral Dx 11:19:03 ACIST Syringe (49104) opened to sterile field. 11:19:03 Bag Decanter (2002S) opened to sterile field. 11:19:03 Medline Cath Pack ([id number]) opened to sterile field. 11:19:04 SHEATH 5FR Shawnee (DAS406) opened to sterile field. 11:19:04 DIAGNOSTIC WIRE .035 260cm J wire (906791) opened to sterile field. 11:19:05 ACIST Hand Control (48834) opened to sterile field. 11:19:06 ACIST Manifold (14950) opened to sterile field. 11:19:06 DIAGNOSTIC Multipack 5Fr catheter set ([id number]) opened to sterile field. 11:19:07 Tegaderm 4 x 4 (1626W) opened to sterile field. 11:19:11 A MULTIPACK Pigtail 5 Fr catheter was advanced over the wire and used for LV Angiography. 11:19:27 LV hemodynamics recorded. 11:19:28 LV gram done using LINCOLN 11:19:31 Fentanyl 50 mcg I.V. was administered by Mile Montes RN; for sedation; 11:19:33 Injector settings: Ml/sec: 5, Volume: 15, 11:19:38 EF : 50 % 11:19:40 Catheter removed. 11:19:41 Versed 2 mg I.V. was administered by Mile Montes RN; for sedation; 11:19:46 A MULTIPACK JL 4.0 5Fr catheter was advanced over the wire and used for Left Coronary Angiography. 11:20:22 LCA angiography performed. 11:20:25 Injector settings: Ml/sec: 3, Volume: 6, 11:21:40 Catheter removed. 11:21:46 A MULTIPACK 3DRC 5Fr catheter was advanced over the wire and used for Right Coronary Angiography. 11:22:05 RCA angiography performed. 11:22:08 Injector settings: Ml/sec: 3, Volume: 6, 11:22:10 Catheter removed. 11:22:12 EXOSEAL 5Fr (EX500) opened to sterile field. 11:22:32 Sheath removed intact; hemostasis achieved with Exoseal to the Right Femoral artery. 11:22:34 Procedure ended.(Physican Out) 11:22:53 Fluoroscopy time 00.90 minutes. 11::55 Flurop Dose total: 350 11:22:55 Fluoroscopy dose: 350 mGy 11:22:59 Contrast amount:Isovue 300 53ml. 11:23:00 Sharps counted by scrub and verified by R.N. 11:23:01 Insertion/operative site no bleeding no hematoma. 11:23:03 Post-op/insertion site Right Femoral artery dressed using a 4 x 4 and Tegaderm. 11:23:05 Post right femoral artery:stable 11:23:07 Post Procedure Pulses reassessed and unchanged 11:23:28 Post procedure rhythm: unchanged. 11:23:30 Estimated blood loss: 5 ml 11:23:31 Post procedure instruction explained to patient.Patient verbalizes understanding. 11:23:32 Patient needs reinforcement of post procedure teaching. 11:23:42 Procedure and supply charges have been captured, reviewed, submitted and are correct. 11:23:49 Procedure Complication : No complications 11:23:51 Vital chart was stopped 11:23:51 See physician's report for complete and final results. 11:24:11 Report given to Pre/Post Procedure Room. 11:24:14 Patient transfered to Pre/Post Procedure Room with Stretcher. 11:24:16 Procedure ended. 11:24:16 Full Disclosure recording stopped 11:24:21 End room use (Document Last) Device Usage Item Name Manufacture Quantity Catalog Hospital Part Current Minimal L ot# / Number Charge Number Stock Stock Serial# Code ACIST Acist 1 48969 [id number] 363596 624629 20 Syringe Mapbox (02301) Systems Inc Bag Microtek 1 735098 24643 575078 5 Decanter Medical Inc. () Medline Cardinal 1 [id number] 997413 15001 671136 5 Cath Pack 24M Technologies ([id number]) SHEATH 5FR Terumo 1 [id number] 125841 412425 886385 40 Shawnee (SWY502) DIAGNOSTIC [facility] [place] 1 651069 636868 902878 632736 30 WIRE .035 260cm J wire (972233) ACIST Hand Acist 1 28410 006941 358976 921532 5 Control Medical (71137) Systems Inc ACIST Acist 1 88474 868808 484951 861686 5 Manifold Medical (25533) Systems Inc DIAGNOSTIC Cardinal 1 [id number] 642047 78748 341759 30 Multipack Health 5Fr catheter set (ES4763) Tegaderm 4 3M 1 1626W 014208 398685 522092 5 x 4 (1626W) MULTIPACK Cardinal 1 110460 5 Pigtail 5 Health Fr catheter MULTIPACK Cardinal 1 654645 5 JL 4.0 5Fr Health catheter MULTIPACK Cardinal 1 117359 5 3DRC 5Fr Health catheter EXOSEAL 5Fr Cardinal 1 EX500 776832 565233 828621 10 (EX500) Health Signature Audit [place] Stage Time Signature Unsigned Intra-Procedure 05/16/2017 Shelia Serrato 11:27:06 AM RT(R) Signatures Monitor : Shelia Serrato RT Signature : Date : Time : [id number] [place] [address]
[2017-05-16] MEDS ORDERED: IBUPROFEN800 MG PO (09:17)
[2017-05-16 09:25] VITALS: BP 122/92; Ht 190.5 cm; Wt 110.0 kg
[2017-05-16 09:53] LABS: ANION GAP 15.3 mmol/L (8-16); CALCIUM 9.3 mg/dL (8.5-10.1); CARBON DIOXIDE 25.9 mmol/L (21.0-32.0); CREATININE - SERUM 1.2 mg/dL (0.6-1.3); POTASSIUM - SERUM 4.2 mmol/L (3.5-5.1)
[2017-05-16 10:28] LABS: BASOPHILS 0.9 % (0-2); EOSINOPHILS 6.9 % (0-7); HEMATOCRIT 48.4 % (42.0-54.0); HEMOGLOBIN 16.7 g/dL (13.5-17.5); IMMATURE GRANULOCYTES 0.2 % (0-5); LYMPHOCYTES 21.3 % (15-50); MCH 29.8 pg (26.0-34.0); MCHC 34.5 g/dL (31.0-37.0); MCV 86.4 fL (80.0-100.0); MEAN PLATELET VOLUME 10.6 fL (7.4-10.4); MONOCYTES 10.2 % (2-11); NEUTROPHILS 60.5 % (40-80); PLATELET COUNT 225 10x3/uL (130-400); RDW 13.1 % (11.5-14.5); WBC 5.8 10x3/uL (4.8-10.8)
== END 2017-05-16 13:33 | disposition home or self-care (01) ==
LOC: D.CATH 09:01
PROVIDERS: Internal Medicine Interventional Cardiology
DX: I25.119 Atherosclerotic heart disease of native coronary artery with unspecified angina pectoris (principal); E78.5 Hyperlipidemia, unspecified; R94.30 Abnormal result of cardiovascular function study, unspecified; F17.200 Nicotine dependence, unspecified, uncomplicated; Z01.812 Encounter for preprocedural laboratory examination

== ENCOUNTER 2017-10-22 19:23 | Emergency (ER) | payer MEDICAID ==
[~2017-10-22] VITALS: Ht 190.5 cm; Wt 111.4 kg
[~2017-10-22 19:23] MED LIST changes: +IBUPROFEN800 MG PO
[2017-10-22 19:41] VITALS: BP 125/96; Ht 190.5 cm; Wt 111.4 kg
[2017-10-22] MEDS ORDERED: CELEBREX50 MG (19:42)
[2017-10-22] MEDS ORDERED: VOLTAREN75 MG PO (20:51)
== END 2017-10-22 21:35 | disposition home or self-care (01) ==
LOC: D.ER 19:23
DX: S99.912A Unspecified injury of left ankle, initial encounter (principal); X50.1XXA Overexertion from prolonged static or awkward postures, initial encounter; Y93.89 Activity, other specified; Y92.019 Unspecified place in single-family (private) house as the place of occurrence of the external cause; F17.200 Nicotine dependence, unspecified, uncomplicated

== ENCOUNTER 2018-01-04 17:55 | Emergency (ER) | payer MEDICAID ==
[~2018-01-04] VITALS: Ht 190.5 cm; Wt 111.4 kg
[~2018-01-04 17:55] MED LIST changes: +CELEBREX50 MG; +VOLTAREN75 MG PO
[2018-01-04 17:57] VITALS: Ht 190.5 cm; Wt 111.4 kg
[2018-01-04 18:16] LABS: BASOPHILS 0.8 % (0-2); EOSINOPHILS 5.1 % (0-7); HEMATOCRIT 42.9 % (42.0-54.0); HEMOGLOBIN 15.1 g/dL (13.5-17.5); LYMPHOCYTES 26.4 % (15-50); MCH 30.1 pg (26.0-34.0); MCHC 35.2 g/dL (31.0-37.0); MCV 85.5 fL (80.0-100.0); MEAN PLATELET VOLUME 10.5 fL (7.4-10.4); MONOCYTES 8.2 % (2-11); NEUTROPHILS 59.5 % (40-80); PLATELET COUNT 185 10x3/uL (130-400); RBC 5.02 10x6/uL (4.20-6.10); RDW 13.3 % (11.5-14.5); WBC 6.3 10x3/uL (4.8-10.8)
[2018-01-04 18:44] LABS: ALBUMIN 3.6 g/dL (3.4-5.0); ALKALINE PHOSPHATASE 64 U/L (46-116); ALT (SGPT) 32 U/L (10-68); BILIRUBIN - TOTAL 0.27 mg/dL (0.2-1.3); CALC OSMOLALITY 275 mosm/kg (275-300); CALCIUM 8.3 mg/dL (8.5-10.1); CARBON DIOXIDE 24.2 mmol/L (21.0-32.0); CHLORIDE - SERUM 105 mmol/L (98-107); CREATININE - SERUM 1.1 mg/dL (0.6-1.3); GLUCOSE 88 mg/dL (74-106); SODIUM 138 mmol/L (136-145); UREA NITROGEN 15 mg/dL (7-18); eGFR NON AFRICAN AMERICAN 75 mL/min (90-120)
[2018-01-04 18:56] LABS: CREATINE KINASE 173 UL (21-232)
[2018-01-04 18:57] LABS: TROPONIN-I < 0.017 ng/mL (0.000-0.060)
[2018-01-04] MEDS ORDERED: NITROSTAT0.4 MG SL (19:26)
[2018-01-04 19:49] VITALS: BP 125/88
== END 2018-01-04 19:50 | disposition home or self-care (01) ==
LOC: D.ER 17:55
PROVIDERS: Family Medicine
DX: I20.9 Angina pectoris, unspecified (principal); F17.200 Nicotine dependence, unspecified, uncomplicated